=== PATIENT | female | born 1975 | race Caucasian/White ===

== ENCOUNTER 2018-03-10 11:05 | Outpatient (CLI) | payer BC ==
--- NOTE | 2018-03-10 12:24 | RAD ---
LUMBAR SPINE TWO VIEWS: HISTORY: A 42-year-old female with a history of lumbar degenerative disk disease. One week follow up back hector gabriela with right leg tingling. COMPARISON: No prior imaging available. FINDINGS: AP and lateral views of the lumbar spine demonstrate right-sided pedicle screws at L5-S1. Somewhat r ight-sided oriented intradiskal prosthesis. Mild levoscoliosis. Generalized spondylosis. No signif icant malalignment. IMPRESSION: 1. Recent postoperative changes at L5-S1, as above. 2. Mild levoscoliosis. 3. Minimal spondylosis. POS: [facility]
== END 2018-03-10 11:06 | disposition home or self-care (01) ==
LOC: TBSIIMAG 11:05
PROVIDERS: ATTEND Neurological Surgery
DX: M51.36 Other intervertebral disc degeneration, lumbar region (principal); M47.896 Other spondylosis, lumbar region; M41.9 Scoliosis, unspecified; Z98.890 Other specified postprocedural states
CPT/HCPCS: 72100